=== PATIENT | female | born 1990 | race Caucasian/White ===

== ENCOUNTER 2020-02-09 17:42 | Emergency (ER) | payer BC, MEDICAID, SELFPAY ==
[2020-02-09 18:04] VITALS: BP 107/66; PULSE 80; RESP 16; TEMP 37.3; O2SAT 99
--- NOTE | 2020-02-09 18:09 | ED.GENADULT ---
HPI - General Adult General Chief complaint: Ear Stated complaint: ear pain Time Seen by Provider: 02/09/20 18:10 Source: patient and RN notes reviewed Mode of arrival: ambulatory Limitations: no limitations History of Present Illness HPI narrative: 29-year-old female presents with complaints of bilateral otalgia, upper respiratory infection symptoms, nasal congestion, and rhinorrhea for the past 4 days. OTC sinus congestion without relief. Ear symptoms increased over the last 24 hours. Denies ear drainage, decrease hearing, or tinnitus. Denies injury to ear. Rhinorrhea and nasal congestion. Denies cough or chest congestion. No high fevers or chills. Denies nausea, vomiting, and dizziness. The patient reports she have not been diagnosed with COVID-19. The patient reports she is not waiting for the results of a COVID-19 lab test. The patient reports she do not have fever, chills, weakness, fatigue, myalgia, or facial swelling. The patient reports she do not have a new or worsening cough or shortness of breath. Denies chest pain. The patient reports she do not have any loss of taste, sore throat, FORRESTER, and diarrhea. Tolerating po intake well. Denies recent traveling. Denies concerns for COVID-19 or exposures been home with limited outdoor exposure except for essential household needs and return home. At this time, patient is not suspected of having COVID-19. Some parts of this dictation were generated by voice recognition software and may contain typographical and/or grammatical inaccuracies. Related Data Home Medications Medication Instructions Recorded Confirmed levonorgestrel 0.15 mg-ethinyl 1 tablet PO DAILY 09/11/19 09/29/19 estradiol 30 mcg tablets,3 mos pack(91) Bc Pill 02/09/20 Allergies Allergy/AdvReac Type Severity Reaction Status Date / Time bee pollen Allergy Unknown Swelling Verified 09/11/19 14:04 of Lip/Tongue/Throat garcia Allergy Unknown Swelling Verified 09/11/19 14:04 of Lip/Tongue/Throat latex Allergy Unknown Rash Verified 09/11/19 14:04 RED WINE Allergy Unknown HIVES, Uncoded 01/21/18 16:50 ITCHING Review of Systems Review of Systems: Narrative: CONSTITUTIONAL: Denies fever, chills, sweats. EYES: Denies visual changes, redness, discharge. ENT: Denies sore throat, decrease hearing, ear drainage. Complains of bilateral otalgia, rhinorrhea, congestion. CARDIOVASCULAR: Denies chest pain, palpitations, edema. RESPIRATORY: Denies dyspnea, wheezing, cough. GASTROINTESTINAL: Denies abdominal pain, nausea, vomiting, diarrhea. GENITOURINARY: Denies dysuria, hematuria, abnormal discharge. SKIN: Denies rash or itching. MUSCULOSKELETAL: Denies acute back pain, joint pain, or myalgia. NEUROLOGIC: Denies numbness or focal weakness. PSYCHIATRIC: Denies anxiety or depression. All systems reviewed & are unremarkable except as noted in HPI and below. [facility] Past Medical History Medical History (Updated 02/10/20 @ 00:00 by Luis Gutierrez) Allergies Generalized anxiety disorder Surgical History Surgical History (Updated 02/09/20 @ 18:18 by RACHEAL Tilley) History of colonoscopy Family History Family History (Updated 02/09/20 @ 18:19 by RACHEAL Tilley) Grandparent Family history of coronary artery disease Diabetes mellitus Father Acute myocardial infarction Heart disease Mother Alive and well Other Carcinoma of colon Social History Social History (Updated 02/09/20 @ 18:20 by RACHEAL Tilley) Smoking packs per day: 0.5 Smoking cigarettes per day: 10.0 Years smoked: 5 Smoking pack-years: 2.50 Smoking status: Current every day smoker Tobacco type: cigarettes Second hand tobacco smoke exposure: No Alcohol intake: former Substance use: current Substance use type: marijuana Living arrangements: with family Occupation/Education: unemployed Gender identity (if verbalized by the patient): Fem
== END 2020-02-09 18:37 | disposition home or self-care (01) ==
PROVIDERS: Emergency Provider Nurse Practitioner Family
DX: H66.93 Otitis media, unspecified, bilateral (principal); J01.90 Acute sinusitis, unspecified; J00 Acute nasopharyngitis [common cold]
CPT/HCPCS: 99213; G0463

== ENCOUNTER 2021-11-19 08:15 | Emergency (ER) | payer OTHER, MEDICAID, SELFPAY ==
[2021-11-19 08:18] VITALS: BP 140/94; PULSE 106; RESP 18; TEMP 36.3; O2SAT 100
[2021-11-19 08:46] LABS: Basophils Absolute Auto 0.1 K/mm3 (0.0-0.1); Basophils Percent Auto 0.8 % (0.2-1.2); Eosinophils Absolute Auto 0.2 K/mm3 (0-0.3); Eosinophils Percent Auto 1.8 % (0-4.4); Hematocrit 44.2 % (37.0-47.0); Hemoglobin 15.3 g/dL (12.0-15.0); Immature Granulocyte Absolute 0.03 K/mm3 (0.00-0.031); Immature Granulocyte Percent A 0.3 % (0-0.5); Lymphocytes Absolute Auto 2.48 K/mm3 (0.9-3.2); Lymphocytes Percent Auto 25.8 % (18.3-44.2); Mean Corpuscular HGB Conc 34.6 g/dl (32-36); Mean Corpuscular Hemoglobin 33.3 pg (26-34); Mean Corpuscular Volume 96.1 fl (80-100); Monocytes Absolute Auto 0.6 K/mm3 (0.1-0.6); Monocytes Percent Auto 6.4 % (2.6-8.5); Neutrophils Absolute Auto 6.3 K/mm3 (1.3-6.7); Neutrophils Percent Auto 64.9 % (45.5-73.1); Platelet Count Result 225 k/mm3 (150-375); Red Cell Distribution Width 12.2 % (11.5-14.5); White Blood Count 9.6 K/mm3 (4.5-10.0)
--- NOTE | 2021-11-19 08:46 | ED.ABDPAIN ---
HPI - Abdominal Pain General Chief Complaint: Abdominal Pain Stated Complaint: dehydrated, dizzy Time Seen by Provider: 11/19/21 08:40 History of Present Illness HPI narrative: pt says last sun. drank too much then n/v after stopped now but feels clamy and dehydrated since little urine outpt no f/cp/sob/abd pain but some cramping all over since. pt says no d/urine chagnes but less outpt also no neuro changes/trauma/preg and h/o drinking a lot in past and this happening before Related Data Home Medications Medication Instructions Recorded Confirmed No Home Medications 11/19/21 11/19/21 Allergies Allergy/AdvReac Type Severity Reaction Status Date / Time bee pollen Allergy Unknown Swelling Verified 11/19/21 08:29 of Lip/Tongue/Throat garcia Allergy Unknown Swelling Verified 11/19/21 08:29 of Lip/Tongue/Throat latex Allergy Unknown Rash Verified 11/19/21 08:29 Latex, Natural Rubber Allergy Unknown Verified 11/19/21 08:44 RED WINE Allergy Unknown HIVES, Uncoded 11/19/21 08:29 ITCHING Review of Systems Constitutional: Comments: CONSTITUTIONAL: Denies fever, chills, or sweats. EYES: Denies visual changes, redness, or discharge. ENT: Denies rhinorrhea, congestion, sore throat, or otalgia. CARDIOVASCULAR: Denies chest pain, palpitations, or edema. RESPIRATORY: Denies cough or dyspnea. GASTROINTESTINAL: Denies abdominal pain, nausea, vomiting, or diarrhea. vomiting earlier stopped now after drinking GENITOURINARY: Denies dysuria or hematuria. SKIN: Denies rash or itching. MUSCULOSKELETAL: Denies back pain, joint pain, or myalgia. NEUROLOGIC: Denies headache, numbness, or weakness. PSYCHIATRIC: Denies anxiety or depression. [facility] Past Medical History Medical History (Updated 11/19/21 @ 09:54 by Arelis Vivar MD) Allergies Generalized anxiety disorder Surgical History Surgical History (Updated 02/09/20 @ 18:18 by RACHEAL Tilley) History of colonoscopy Family History Family History (Updated 02/09/20 @ 18:19 by RACHEAL Tilley) Grandparent Family history of coronary artery disease Diabetes mellitus Father Acute myocardial infarction Heart disease Mother Alive and well Other Carcinoma of colon Social History Social History (Updated 02/09/20 @ 18:20 by RACHEAL Tilley) Smoking packs per day: 0.5 Smoking cigarettes per day: 10.0 Years smoked: 5 Smoking pack-years: 2.50 Smoking status: Current every day smoker Tobacco type: cigarettes Second hand tobacco smoke exposure: No Alcohol intake: former Substance use: current Substance use type: marijuana Gender identity (if verbalized by the patient): Female Sexual Orientation (if Verbalized by the Patient): Straight or Heterosexual Exam Narrative: APPEARANCE: Well appearing, no pain in distress, well-nourished. Head normocephalic atraumtaic. EYES: PERRLA/EOMI, conjunctivae very clear. NOSE: Normal no drainage EARS:TMS clear Johana Bell, with good light reflex. THROAT: Pharynx clear, no exudate. NECK: Supple. No adenopathy, no masses. RESPIRATORY: Airway patent, repsirations nonlabored. Clear to auscultation bilaterally, no rales, rhonchi, wheezing. CARDIOVASCULAR: Regular rate and rhythm without murmurs rubs or gallops. ABDOMINAL: Soft, nontender, nondistended, no hepatosplenomegally nt on exam no pain MUSCULOSKELETAl: Moves all extremities. Strenght/ROM intact, No edema, No calf tenderness. NEURO: Alert. Cranial nerves II through XII intact. Good gait. Good coordination SKIN:: Warm, dry. Normal Color PSYCHIATRIC: Normal affect/mood, normal interaction with parents. Course Course Emergency Course: updated pt at 0940 good with plan reviewed old records h/o etoh abuse in past which pt did elude to Vital Signs Vital signs: Vital Signs Temperature 36.3 C L 11/19/21 08:18 Pulse Rate 106 H 11/19/21 08:18 Respiratory Rate 18 11/19/21 08:18 Blood Pressure 140/9
[2021-11-19 08:47] LABS: Appearance Urine Clear (Clear); Bilirubin Urine 1+ (Negative); Blood Urine 1+ (Negative); Color Urine Yellow (Yellow); Glucose Urine UA Negative (Negative); Ketones Urine Trace mg/dL (Negative); Leukocyte Esterase Ur Negative LEU/UL (Negative); Nitrate Urine Negative (Negative); Protein Urine Negative (Negative); Specific Grav Ur <= 1.005 (1.001-1.035); Urobilinogen Urine 0.2 mg/dL (<2.0)
[2021-11-19] MEDS: SODIUM CHLORIDE 0.9% IV 1,000 ML 999 ML IV CONT (08:52)
[2021-11-19 08:53] LABS: Alanine Aminotransferase 32 U/L (6-35); Albumin Level 4.9 g/dL (3.5-5.1); Alkaline Phosphatase 68 U/L (38-126); Anion Gap 11 mmol/L (8-16); Aspartate Amino Transferase 43 U/L (14-36); Bilirubin,Total 1.9 mg/dL (0.2-1.3); Blood Urea Nitrogen 12 mg/dL (7-17); Calcium 9.8 mg/dL (8.4-10.2); Carbon Dioxide 25 mmol/L (22-30); Chloride 97 mmol/L (98-107); Estimated CRCL calculation 74 ml/min; Estimated Glomerular Filt Rate > 60; Glucose 125 mg/dL (65-110); Lipase 118 U/L (23-300); Sodium 133 mmol/L (137-145)
[2021-11-19 08:54] LABS: Bacteria Urine Trace /hpf; Mucus Urine Rare /lpf; RBC Urine 0-2 /hpf (0-2); Squamous Epithelial Cell Urine Many /hpf (Few)
[2021-11-19 08:58] LABS: Add Urine Microscopic? YES
[2021-11-19] MEDS: POTASSIUM CHLORIDE 20 MEQ PACKET (FOR LIQUID) 40 MEQ PO (09:21)
[2021-11-19 09:22] VITALS: BP 119/76; PULSE 94; RESP 15; O2SAT 100
== END 2021-11-19 10:10 | disposition home or self-care (01) ==
PROVIDERS: Emergency Provider Emergency Medicine; PCP Family Medicine
DX: E86.0 Dehydration (principal); E87.6 Hypokalemia; F10.10 Alcohol abuse, uncomplicated; F17.210 Nicotine dependence, cigarettes, uncomplicated
CPT/HCPCS: 36415; 80053; 81001; 81025; 83690; 85025; 96360; 99283; A9270; J7030

== ENCOUNTER 2025-01-13 00:30 | Day surgery (SDC) | payer OTHER, SELFPAY ==
[2025-01-01 15:13] VITALS: BMI 21.5
--- NOTE | 2025-01-01 15:30 | PC.NURSE ---
Report to the Outpatient Waiting Room, entrance under the green pavilion located off [facility], at time __0830 on date _01/13/25 . Planned Procedure Time: _1030 .? Time changes happen often and if your time is changed the preop area will call you the afternoon before. - You and your visitor will be asked to self-screen and do not enter if you have any COVID symptoms. Please call surgeon if you need to reschedule. - A mask is optional within the hospital at this time. Patients may have clear liquids (water, carbonated beverages, clear teas, apple juice) until 3 hours prior to surgery with a maximum of 20 ounces. - No food from midnight until time of surgery and no smoking, or chewing tobacco (or any form of nicotine). No chewing gum, candy or mints. Take only the following medications with a SIP of water on the morning of surgery: ___NONE DO NOT STOP ANY OF YOUR OTHER PRESCRIPTION MEDICATIONS PRIOR TO SURGERY EXCEPT THE FOLLOWING Hold all vitamins and supplements for 3 days per anesthesiologist. Medications to discontinue per physician NONE Date to take last dose NONE Please no make-up, nail armenian, hairspray, perfume, deodorant, or body powder the day of surgery.? No jewelry (including any body piercings) or valuables the day of surgery, leave them at home.? Please take a shower or bath the night before, or the morning of, surgery with an antibacterial soap.? Wear comfortable, loose fitting clothing.? - Jewelry must be removed prior to entering the operating room.? Rings and piercings that are not removed may be cut off. - The hospital will not accept responsibility for valuables.? - Please leave all valuables, including medications, at home the day of surgery. If you are going home after surgery, a licensed medical delivery driver must drive you home.? - NO public transportation without another adult if you receive anesthesia. - We recommend that an adult stay with you for 24 hours following discharge. - We also recommend that you do not drive, make important decision, drink alcoholic beverages, or take any drugs that were not prescribed by your health care provider for at least 24 hours after your discharge time. Follow any additional instructions given to you from your surgeon. Telephone instructions given to ___LIBBY and asked if any additional questions and then verbalized understanding. Patient advised to call surgeon office or pre surgery nurse liaison [phone] if any additional questions.
[2025-01-13] VITALS (9 sets, daily range): BP systolic 101–126; BP diastolic 61–87; PULSE 57–94; RESP 14–18; TEMP 36.3–37.2; O2SAT 97–100
--- OUTSIDE RECORDS SUMMARY | 2025-01-13 00:32 | XMS_ITS | Clinical Summary ---
Author Organization [facility] Address [address] [place] [address] Care Team Providers Care Cognos Report Developer Name Role Phone Unknown, Notinfile Primary Care Provider Unavail able Allergies Active Allergy Reactions Criticality Noted Date Comments Venom-Honey Bee Anaphylaxis High 08/02/2023 James Anaphylaxis High 08/02/2023 Latex Rash Medium 08/02/2023 Medications levonorgestreL-ethi nyl estrad (SEASONALE) 0.15 mg-30 mcg (91) per tablet Take 1 tablet by mouth daily 4 Active ondansetron ODT (ZOFRAN-ODT) 4 mg disintegrating tabletIndications:M enstrual cramps Take 1 tablet (4 mg total) by mouth every 8 (eight) hours as needed for nausea or vomiting 20 tablet 5 Active Active Problems Problem Noted Date Diagnosed Date Menstrual cramps 10/31/2024 Assessment & Plan (10/31/2024 11:03 AM CDT): Start Ibuprofen 800 mg po tid as needed for pain Start Zofran odt 4 mg q 8 hours for nausea prn Start Imodium as needed q4 hours as needed for diarrhea Use a heating pad to reduce discomfort. Eat a nutritious diet, exercise and rest as needed and f/u with your ob/gyn nurse doctor If symptoms do not resolve. Encounters Date Type Department Care Team Description 10/31/2024 10:45 AM CDT Office Visit [facility] at [address] [phone] Anne-Marie Long, STORMY Menstrual cramps (Primary Dx) from Last 3 Months Surgical History Surgery Date Site/Laterality Comments COLONOSCOPY Medical History Medical History Date Comments Colon polyp Family History Medical History Relation Name Comments Colon cancer Paternal Grandfather Colon cancer Paternal Grandmother Relation Name Status Comments Paternal Grandfather Paternal Grandmother Social History Tobacco Use Types Packs/Day Years Used Date Smoking Tobacco: Never Tobacco Cessation:Counseling Given: Not Answered AUDIT-C Answer Date Recorded Q1: How often do you have a drink containing alc ohol? Never 08/02/2023 Average Number of Drinks Not on file 024 Frequency of Binge Drinking Not on file 07/19 Personal Safety Answer Date Recorded Have you ever been in or are you currently in a harmful physical or emotional relationship or is someone making you feel afraid or unsafe? 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 Gender Identity Not on file Sexual Orientation Not on file Obstetrics History Last Filed Vital Signs Vital Sign Reading Time Taken Comments Blood Pressure 98/64 10/31/2024 10:09 AM CDT Pulse 62 10/31/2024 10:09 AM CDT Temperature 36.9 C (98.5 F) 10/31/2024 10:09 AM CDT Respiratory Rate 11 10/31/2024 10:09 AM CDT Oxygen Saturation 98% 10/31/2024 10:09 AM CDT Inhaled Oxygen Concentration - - Weight 47.6 kg (105 lb) 10/31/2024 10:09 AM CDT Height 152.4 cm (5') 10/31/2024 10:09 AM CDT Body Mass Index 20.51 10/31/2024 10:09 AM CDT Plan of Treatment Health Maintenance Due Date Last Done Comments Cervical Cancer Screening 1992 Depression Screening 1992 Hepatitis C Screening 1992 DTaP/Tdap/Td Vaccine (2 - Tdap) 2003 11/10/1993 Varicella Vaccines (1 of 2 - 13+ 2-dose series) 2005 Regular Well Visit/Exam 18-64 2010 HPV Vaccines (1 - 3-dose SCD M series) 2019 Covid-19 Vaccine (3 - 2023-2 5 season) 2024 04/28/2021, 03/28/2021 Influenza Vaccine (#1) 2025 03/10/2019 Hepatitis B Screening Completed 07/17/1994 , 08/11/1993, 07/07/1993 Pneumococcal vaccine <65 Aged Out No longer eligible based on patient's age to complete this topic Insurance [facility] [employer] [facility] Care Teams Cognos Report Developer Relationship Specialty Start Date End Date Unknown, Notinfile PCP - General 06/12/24
--- OUTSIDE RECORDS SUMMARY | 2025-01-13 00:32 | XMS_ITS | Encounter Summary ---
Author Organization [facility] Address [address] [place] [id number] Care Team Providers Care Cage Tender Name Role Phone No, Physician Primary Care Provider [phone] Unknown, Notinfile Primary Care Provider Unavail able Encounter Details Date Type Department Care Team (Late st Contact Info) Description 05/18/2023 Telephone [facility] [address] [place] [phone] Miscellaneous, Not In File Social History Tobacco Use Types Packs/Day Years Used Date Smoking Tobacco: Never Assessed Personal Safety Answer Date Recorded Getting School Help Needed Not on file 05/18 Comments Unknown Sex and Gender Information Value Date Recorded Sex Assigned at Not on file 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
--- NOTE | 2025-01-13 08:54 | WPDANESEPPF ---
Anes - Initial Pre Proc Eval Procedure: Operation Date: 01/13/25 10:30 Proposed Procedures p Bilateral Breast Augmentation - Keshawn Rodriguez MD Date/Time: 01/13/25 08:54 Surgeon: Keshawn Rodriguez MD Pre Op Diagnosis: micromastia Patient Data Age: 34 Gender: F Height: 1.52 m Weight: 45.75 kg Last Vital Signs Temp 37.2 C 01/13/25 08:44 Pulse 94 01/13/25 08:44 Resp 16 01/13/25 08:44 BP 101/62 01/13/25 08:44 Pulse Ox 100 01/13/25 08:44 O2 Del Method Room Air 01/13/25 08:44 Allergies Allergy/AdvReac Type Severity Reaction Status Date / Time bee pollen Allergy Unknown Swelling Verified 01/13/25 08:30 of Lip/Tongue/Throat garcia Allergy Unknown Swelling Verified 01/13/25 08:30 of Lip/Tongue/Throat latex Allergy Unknown Rash Verified 01/13/25 08:30 Latex, Natural Rubber Allergy Unknown Verified 01/13/25 08:30 RED WINE Allergy Unknown HIVES, Uncoded 01/13/25 08:30 ITCHING Home Medications ?Medication ?Instructions ?Recorded ?Confirmed ?Type levonorgestrel 0.15 mg-ethinyl 1 tablet PO DAILY 01/01/25 01/13/25 History estradiol 30 mcg tablets,3 mos pack(91) Patient hx anesthesia problems: none Family hx anesthesia problems: none Results Review: All pre-operative results and documents have been reviewed as part of the pre-operative evaluation. [facility] Past Medical History Medical History (Updated 01/13/25 @ 08:54 by Kevin Newell DO) IBS (irritable bowel syndrome) Allergies Generalized anxiety disorder Surgical History Surgical History (Updated 02/09/20 @ 18:18 by RACHEAL Tilley) History of colonoscopy Family History Family History (Updated 02/09/20 @ 18:19 by RACHEAL Tilley) Grandparent Family history of coronary artery disease Diabetes mellitus Father Acute myocardial infarction Heart disease Mother Alive and well Other Carcinoma of colon Social History Social History (Updated 02/09/20 @ 18:20 by RACHEAL Tilley) Smoking packs per day: 0.5 Smoking cigarettes per day: 10.0 Years smoked: 3 Smoking pack-years: 1.50 Smoking status: Former smoker Tobacco type: cigarettes Second hand tobacco smoke exposure: No Smoking end date: 05/21/14 Alcohol intake: never Substance use: never Substance use type: marijuana Other substance usage details: EDIBLES Living arrangements: with family Occupation/Education: unemployed Gender identity (if verbalized by the patient): Female Sexual Orientation (if Verbalized by the Patient): Straight or Heterosexual Spiritual care concerns: No Anes - Eval Final PreProcedure Day of Procedure 01/13/25 08:54 Patient weight: normal Heart: regular rate and rhythm Lungs: clear to auscultation Airway: Mallampati scale class II Neurological: alert and oriented Last oral intake: >/= 8 hours ASA classification: II Emergent: no Anesthetic plan: proceed Anesthesia type and monitoring: general LMA and standard monitoring Results Review: All pre-operative results and documents have been reviewed as part of the pre-operative evaluation. Informed Consent: The patient's anesthetic plan and its attendant risks and benefits were discussed with the patient/family/POA. Questions were solicited and answers provided to the satisfaction of the patient/family/POA.
[2025-01-13 09:08] LABS: BEDSIDEPREGUCG Negative (Negative)
[2025-01-13] MEDS: LACTATED RINGERS 1,000 ML 30 ML IV CONT ×2 (09:13→11:26)
[2025-01-13] MEDS: TRANEXAMIC ACID 1,000MG/ISO100 1,000 MG/100 ML BAG 200 MG IVPB (09:31)
--- NOTE | 2025-01-13 09:47 | WPDHPUPDATE1 ---
History and Physical Update Update Date/Time: 01/13/25 09:47 History and Physical has been reviewed, including an updated exam of the patient. There are NO changes in the patient's condition. Risks, benefits, and alternatives have been discussed and questions answered. Patient agrees to proceed with procedure.
--- NOTE | 2025-01-13 10:03 | W.PM.PROC2 ---
Procedure Note - Detailed Date of Procedure 01/13/25 Pre-op Diagnosis micromastia Post-op Diagnosis Same Procedure Performed Bilateral augmentation mammaplasty Surgeon Keshawn Rodriguez MD Anesthesia General Findings Bilateral Eva Emerson Cohesive 400cc Right: REF# [id number] SN: [id number] Left: REF# [id number] SN: [id number] Dual plane 1 Description of Procedure She is here today for bilateral breast augmentation. Previously and again today the risks, benefits, alternatives were discussed in extensive detail. I wanted her to be very realistic about the risks involved as well as expectations. We discussed aftercare and what to monitor for. Made sure answered all of her questions to her satisfaction today and consent was obtained. Marked in the preoperative holding area with their verification. The patient was taken to the operating room placed supine on the operating table. Anesthesia was provided by anesthesiology. A surgical time-out was taken. We cleansed the skin and 1% lidocaine and 0.25% Marcaine with epinephrine was used anesthetize as a field block. She was prepped and draped in a standard sterile fashion. Tegaderm nipple Luna were placed. A 15 blade used to make an incision along the inframammary fold. Dissection was continued at 45 degree angle until the chest wall as identified. I incised the pectoralis major along its inferior border and completely released the inferior border leaving the medial border intact. I created a subpectoral pocket in the appropriate dimensions based on our preoperative planning for the implant. I then copiously irrigated with saline solution and verified a strict hemostasis. Next the use a triple antibiotic and Betadine containing solution to irrigate the pocket. I washed my gloves with the triple antibiotic and Betadine solution. We washed the implant immediately upon opening it with this solution and only opened it when we needed it. I used implant funnel and no-touch technique. The implant was introduced into the pocket using the funnel. Having verified positioning of the implant this was closed using 2-0 PDS followed by 3-0 Monocryl in a running subcuticular 4-0 Monocryl followed by tissue glue. Fluffs and surgical bra were placed. Patient was awoke and taken to PACU without difficulty. All instrument sponge counts were correct at the end of the case. Estimated Blood Loss 20 Drains No Packing No Pathology None sent Complications No immediate complications Condition Stable Disposition PACU
[2025-01-13] MEDS: LIDO 1%/EPINEPHRINE 1:100,000 20 ML VIAL 30 ML INFILTRATE (10:25)
[2025-01-13] MEDS: ceFAZolin 2 GM in SODIUM CHLORIDE 0.9% IV 50 ML 100 ML IVPB (10:25)
[2025-01-13] MEDS: NACL 0.9% IRRIG POUR BOTTLE 900 ML, GENTAMICIN SULFATE INJ 160 MG, ceFAZolin 2 GM, POVI... IRRIGATION (10:25)
--- NOTE | 2025-01-13 11:55 | SUR.PHASEI ---
1152: RN Spoke w/ Dr. Rodriguez and told him left side didn't symmetrical to right. He said he will come take a look at the patient himself soon.
[2025-01-13] MEDS: ONDANSETRON INJ 4 MG/2 ML VIAL IV PUSH (12:02)
--- NOTE | 2025-01-13 13:39 | SUR.PHASEII ---
1325- Pt. still nauseated, declining additional medication at this time. Pt wants to go home and rest. Pt advised not to drive, make important decisions, drink alcoholic beverages, or take any drugs that were not prescribed by your health care provider for at least 24 hours after your discharge time. Patient also advised to call surgeon with any additional questions/concerns.
== END 2025-01-13 13:31 | disposition home or self-care (01) ==
PROVIDERS: Visit Provider Surgery Plastic and Reconstructive Surgery
PROC: (CPT 19325; principal; 2025-01-13 10:30)
DX: Z41.1 Encounter for cosmetic surgery (principal); N64.82 Hypoplasia of breast; K58.9 Irritable bowel syndrome, unspecified; F41.9 Anxiety disorder, unspecified; F12.90 Cannabis use, unspecified, uncomplicated; Z79.891 Long term (current) use of opiate analgesic; Z98.890 Other specified postprocedural states; Z87.891 Personal history of nicotine dependence; Z80.0 Family history of malignant neoplasm of digestive organs; Z82.49 Family history of ischemic heart disease and other diseases of the circulatory system
CPT/HCPCS: 19325; J0690; A9270; J1100; J1171; J1580; J2004; J2250; J2405; J2704; J3010; J7120